=== PATIENT | male | born 1960 | race Caucasian/White ===

== ENCOUNTER 2022-10-15 08:34 | Emergency (ER) | payer OTHER | END 2022-10-15 10:51 | disposition home or self-care (01) | LOC: MW.ED 08:34 → MERGE 08:34 → MW.ED 10:51 | DX: M25.512 Pain in left shoulder (principal); V49.40XA Driver injured in collision with unspecified motor vehicles in traffic accident, initial encounter; Y92.410 Unspecified street and highway as the place of occurrence of the external cause | CPT/HCPCS: 73030-26-LT; 73030-LT; 99284 ==